=== PATIENT | male | born 2005 | race Caucasian/White ===

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

== ENCOUNTER 2025-01-23 01:33 | Emergency (ER) | payer SELFPAY ==
[2025-01-23 01:48] VITALS: BP 137/91; PULSE 103; RESP 18; TEMP 36.7; O2SAT 98
--- NOTE | 2025-01-23 01:49 | ED.PSYCH ---
HPI - Psych General Chief Complaint: Psychiatric Symptoms <Maurisio Rainey MD - Last Filed: 01/23/25 06:59> Stated Complaint: SI with plan <Maurisio Rainey MD - Last Filed: 01/23/25 06:59> Time Seen by Provider: 01/23/25 17:40 <Maurisio Rainey MD - Last Filed: 01/23/25 06:59> Source: patient and EMS <Maurisio Rainey MD - Last Filed: 01/23/25 06:59> Mode of arrival: EMS <Maurisio Rainey MD - Last Filed: 01/23/25 06:59> Limitations: no limitations <Maurisio Rainey MD - Last Filed: 01/23/25 06:59> History of Present Illness HPI Narrative: This is a 19-year-old male with history of anxiety, depression who presents to the ED for suicidal ideations. Per EMS, they were called by the crisis line for patient reporting that he was wanting to jump off a bridge. Patient does corroborate this story. He states that he was on his way to the [place] a bridge over some sharp prox to climb up and jump off. He states he was admitted to a psych facility about a month and a half ago and was given a prescription for Lexapro, Abilify, and another medication that he cannot recall. He was initially set up for a psychiatry re-evaluation but this got pushed back and he has since run out of his prescriptions. He does report that the medicines were somewhat helping. Denies any homicidal ideations, hallucinations. Does report some bilateral flank pain at this time and does have a history of kidney stones. Denies hematuria, dysuria. <Maurisio Rainey MD - Last Filed: 01/23/25 06:59> Related Data Allergies/Adverse Reactions: Allergies Allergy/AdvReac Type Severity Reaction Status Date / Time No Known Allergies Allergy Verified 01/23/25 04:09 <Maurisio Rainey MD - Last Filed: 01/23/25 06:59> [facility] Social History Social History: Social History Substance use type: marijuana <Maurisio Rainey MD - Last Filed: 01/23/25 06:59> Exam Narrative: APPEARANCE: No acute distress, nontoxic, resting in bed EYES: EOMI HEENT: Normocephalic, atraumatic, OMM RESPIRATORY: No respiratory distress Clear to auscultation bilaterally with no rhonchi wheezing or rales. CARDIOVASCULAR: Regular rate and rhythm without murmurs rubs or gallops. ABDOMINAL: Soft, nontender, nondistended, no rebound or guarding MUSCULOSKELETAl: Moves all extremities. No clubbing, cyanosis or edema. NEURO: Awake and alert. Following commands, speech normal, no focal deficits SKIN:: Warm, dry. No rashes lesions or abrasions PSYCHIATRIC: Blunted affect, depressed mood <Maurisio Rainey MD - Last Filed: 01/23/25 06:59> Course Reevaluation(s) Reevaluation #1: I assumed care of this patient at shift change with pending psychiatric admission. No interval change in patient's condition. He remained quite uncommon in his room. Was told by the nurse that he has a bed available at [facility] <Agus Adams MD - Last Filed: 01/23/25 17:41> Vital Signs Vital signs: Vital Signs Temperature 36.7 C 01/23/25 01:48 Pulse Rate 103 H 01/23/25 01:48 Respiratory Rate 18 01/23/25 01:48 Blood Pressure 137/91 H 01/23/25 01:48 Pulse Oximetry 98 01/23/25 01:48 Oxygen Delivery Room Air 01/23/25 01:48 Temperature 36.4 C 01/23/25 11:06 Pulse Rate 94 01/23/25 17:19 Respiratory Rate 14 01/23/25 17:19 Blood Pressure 119/68 01/23/25 17:19 Pulse Oximetry 96 01/23/25 17:19 Oxygen Delivery Room Air 01/23/25 01:48 <Maurisio Rainey MD - Last Filed: 01/23/25 06:59> Vital Signs Temperature 36.7 C 01/23/25 01:48 Pulse Rate 103 H 01/23/25 01:48 Respiratory Rate 18 01/23/25 01:48 Blood Pressure 137/91 H 01/23/25 01:48 Pulse Oximetry 98 01/23/25 01:48 Oxygen Delivery Room Air 01/23/25 01:48 Temperature 36.4 C 01/23/25 11:06 Pulse Rate 94 01/23/25 17:19 Respiratory Rate 14 01/23/25 17:19 Blood Pressure 119/68 01/23/25 17:19 Pulse Oximetry 96 01/23/25 17:19 Oxygen Delivery Room Air 01/23/25 01:48 <Agus Adams MD - Last Filed: 01/23/25 17:41> MDM - Psych MDM Narrative Medical decision making narrative: 19-year-old male Presenting for suicidal thoughts with plan. On initial evaluation patient was in no acute distress afebrile, hemodynamic stable. Differentials include but are not limited to: Suicidal ideation, bipolar disorder, depression, drug intoxication, alcohol intoxication, ureterolithiasis Notable exam findings: Depressed mood, blunted affect normal abdominal exam Notable lab findings: Labs without significant abnormalities. UA had very small amount of microscopic hematuria, unlikely consistent with a ureterolithiasis Patient medically cleared for psychiatric evaluation at this time. Patient remains pending psychiatric evaluation at this time. Patient signed out to Dr. Adams. <Maurisio Rainey MD - Last Filed: 01/23/25 06:59> Medical Records Attestation: I reviewed the patient's medical records. <Maurisio Rainey MD - Last Filed: 01/23/25 06:59> Lab Data Attestation: I reviewed the patient's lab results. <Maurisio Rainey MD - Last Filed: 01/23/25 06:59> Result diagrams: 01/23/25 02:25 01/23/25 02:25 <Maurisio Rainey MD - Last Filed: 01/23/25 06:59> Labs: Lab Results 01/23/25 Range/Units 02:25 WBC 5.5 (4.5-10.0) K/mm3 RBC 5.64 (4.6-6.20) M/mm3 Hgb 15.3 (14.0-18.0) g/dL Hct 46.1 (42.0-52.0) % MCV 81.7 (80-100) fl MCH 27.1 (26-34) pg MCHC 33.2 (32-36) g/dl RDW 12.3 (11.5-14.5) % Plt Count 247 (150-375) k/mm3 MPV 8.5 (7.4-10.4) fl Immature Gran % (Auto) 0.4 (0-0.5) % Neut % (Auto) 51.8 (45.5-73.1) % Lymph % (Auto) 35.7 (18.3-44.2) % [place] % (Auto) 9.8 H (2.6-8.5) % Eos % (Auto) 1.6 (0-4.4) % Baso % (Auto) 0.7 (0.2-1.2) % Lymph # (Auto) 1.97 (0.9-3.2) K/mm3 [place] # (Auto) 0.5 (0.1-0.6) K/mm3 Eos # (Auto) 0.1 (0-0.3) K/mm3 Baso # (Auto) 0.0 (0.0-0.1) K/mm3 Abs Immat Gran (auto) 0.02 (0.00-0.031) K/mm3 Absolute Neuts (auto) 2.9 (1.3-6.7) K/mm3 Absolute Nucleated RBC 0.000 (0.0-0.012) K/mm3 Nucleated RBC % 0.0 (0.0-0.2) % Sodium 138 (134-143) mmol/L Potassium 3.8 (3.4-5.0) mmol/L Chloride 101 (98-107) mmol/L Carbon Dioxide 28 (22-30) mmol/L Anion Gap 9 (4-12) mmol/L BUN 14 (8-21) mg/dL Creatinine 0.74 (0.7-1.3) mg/dL Estim Creat Clear Calc Not Reportable Estimated GFR > 60 (59 - ) Glucose 125 H (65-110) mg/dL Calcium 9.4 (8.9-10.7) mg/dL Total Bilirubin 0.6 (0.2-1.3) mg/dL AST 47 (17-59) U/L ALT 60 H (6-50) U/L Alkaline Phosphatase 58 (58-237) U/L Total Protein 7.8 (6.3-8.6) g/dL Albumin 4.9 (3.7-5.6) g/dL TSH 2.700 (0.465-4.680) uIU/mL Urine Color Yellow (Yellow) Urine Appearance Turbid H (Clear) Urine pH 8.0 (5.0-9.0) Ur Specific [place] 1.020 (1.001-1.035) Urine Protein Negative (Negative) mg/dL Urine Glucose (UA) Negative (Negative) mg/dL Urine Ketones Negative (Negative) mg/dL Ur Blood (Man) Negative (Negative) Urine Nitrate Negative (Negative) Urine Bilirubin Negative (Negative) Urine Urobilinogen 1.0 (<2.0) mg/dL Leukocyte Esterase Rfl Negative (Negative) ANALISA/UL Urine RBC 3-5 H (0-2) /hpf Urine WBC 0-5 (0-3) /hpf Ur Squamous Epith Cells None seen (Few) /hpf Urine Bacteria None seen /hpf Urine Casts 0-2 Salicylates < 1.0 L (2-20) mg/dL Urine Opiates Screen Negative (Negative) Urine Methadone Screen Negative (Negative) Acetaminophen < 10 L (10-30) ug/mL Ur Barbiturates Screen Negative (Negative) Ur Phencyclidine Scrn Negative (Negative) Ur Amphetamine Screen Negative (Negative) U Benzodiazepines Scrn Negative (Negative) Urine Cocaine Screen Negative (Negative) U Cannabinoids Screen Negative (Negative) Ethyl Alcohol < 10 (<10) mg/dL Influenza A (RT-PCR) Negative (Negative) Influenza B (RT-PCR) Negative (Negative) RSV (RT-PCR) Negative (Negative) SARS-CoV-2 RNA (RT-PCR) Negative (Negative) <Maurisio Rainey MD - Last Filed: 01/23/25 06:59> Lab Results 01/23/25 Range/Units 02:25 WBC 5.5 (4.5-10.0) K/mm3 RBC 5.64 (4.6-6.20) M/mm3 Hgb 15.3 (14.0-18.0) g/dL Hct 46.1 (42.0-52.0) % MCV 81.7 (80-100) fl MCH 27.1 (26-34) pg MCHC 33.2 (32-36) g/dl RDW 12.3 (11.5-14.5) % Plt Count 247 (150-375) k/mm3 MPV 8.5 (7.4-10.4) fl Immature Gran % (Auto) 0.4 (0-0.5) % Neut % (Auto) 51.8 (45.5-73.1) % Lymph % (Auto) 35.7 (18.3-44.2) % [place] % (Auto) 9.8 H (2.6-8.5) % Eos % (Auto) 1.6 (0-4.4) % Baso % (Auto) 0.7 (0.2-1.2) % Lymph # (Auto) 1.97 (0.9-3.2) K/mm3 [place] # (Auto) 0.5 (0.1-0.6) K/mm3 Eos # (Auto) 0.1 (0-0.3) K/mm3 Baso # (Auto) 0.0 (0.0-0.1) K/mm3 Abs Immat Gran (auto) 0.02 (0.00-0.031) K/mm3 Absolute Neuts (auto) 2.9 (1.3-6.7) K/mm3 Absolute Nucleated RBC 0.000 (0.0-0.012) K/mm3 Nucleated RBC % 0.0 (0.0-0.2) % Sodium 138 (134-143) mmol/L Potassium 3.8 (3.4-5.0) mmol/L Chloride 101 (98-107) mmol/L Carbon Dioxide 28 (22-30) mmol/L Anion Gap 9 (4-12) mmol/L BUN 14 (8-21) mg/dL Creatinine 0.74 (0.7-1.3) mg/dL Estim Creat Clear Calc Not Reportable Estimated GFR > 60 (59 - ) Glucose 125 H (65-110) mg/dL Calcium 9.4 (8.9-10.7) mg/dL Total Bilirubin 0.6 (0.2-1.3) mg/dL AST 47 (17-59) U/L ALT 60 H (6-50) U/L Alkaline Phosphatase 58 (58-237) U/L Total Protein 7.8 (6.3-8.6) g/dL Albumin 4.9 (3.7-5.6) g/dL TSH 2.700 (0.465-4.680) uIU/mL Urine Color Yellow (Yellow) Urine Appearance Turbid H (Clear) Urine pH 8.0 (5.0-9.0) Ur Specific [place] 1.020 (1.001-1.035) Urine Protein Negative (Negative) mg/dL Urine Glucose (UA) Negative (Negative) mg/dL Urine Ketones Negative (Negative) mg/dL Ur Blood (Man) Negative (Negative) Urine Nitrate Negative (Negative) Urine Bilirubin Negative (Negative) Urine Urobilinogen 1.0 (<2.0) mg/dL Leukocyte Esterase Rfl Negative (Negative) ANALISA/UL Urine RBC 3-5 H (0-2) /hpf Urine WBC 0-5 (0-3) /hpf Ur Squamous Epith Cells None seen (Few) /hpf Urine Bacteria None seen /hpf Urine Casts 0-2 Salicylates < 1.0 L (2-20) mg/dL Urine Opiates Screen Negative (Negative) Urine Methadone Screen Negative (Negative) Acetaminophen < 10 L (10-30) ug/mL Ur Barbiturates Screen Negative (Negative) Ur Phencyclidine Scrn Negative (Negative) Ur Amphetamine Screen Negative (Negative) U Benzodiazepines Scrn Negative (Negative) Urine Cocaine Screen Negative (Negative) U Cannabinoids Screen Negative (Negative) Ethyl Alcohol < 10 (<10) mg/dL Influenza A (RT-PCR) Negative (Negative) Influenza B (RT-PCR) Negative (Negative) RSV (RT-PCR) Negative (Negative) SARS-CoV-2 RNA (RT-PCR) Negative (Negative) <Agus Adams MD - Last Filed: 01/23/25 17:41> Discharge Plan Discharge Clinical Impression: Suicidal ideation <Maurisio Rainey MD - Last Filed: 01/23/25 06:59> Patient Disposition: Psychiatric Hosp <Maurisio Rainey MD - Last Filed: 01/23/25 06:59> Condition: Stable <Maurisio Rainey MD - Last Filed: 01/23/25 06:59> Patient Language: Lithuanian <Maurisio Rainey MD - Last Filed: 01/23/25 06:59> Follow-up/Referrals: PHYSICIAN,CONDUCTOR ORCHESTRA [Primary Care Provider, Internal Medicine] <Maurisio Rainey MD - Last Filed: 01/23/25 06:59> Time of Disposition: 17:41 <Maurisio Rainey MD - Last Filed: 01/23/25 06:59> 17:41 <Agus Adams MD - Last Filed: 01/23/25 17:41>
[2025-01-23 02:36] LABS: Hematocrit 46.1 % (42.0-52.0); Hemoglobin 15.3 g/dL (14.0-18.0); Immature Granulocyte Percent A 0.4 % (0-0.5); Lymphocytes Absolute Auto 1.97 K/mm3 (0.9-3.2); Mean Corpuscular HGB Conc 33.2 g/dl (32-36); Mean Corpuscular Hemoglobin 27.1 pg (26-34); Mean Corpuscular Volume 81.7 fl (80-100); Nucleated Red Blood Cells Absolute Auto 0.000 K/mm3 (0.0-0.012); Nucleated Red Blood Cells Perc 0.0 % (0.0-0.2); Platelet Count Result 247 k/mm3 (150-375); Red Blood Count 5.64 M/mm3 (4.6-6.20); White Blood Count 5.5 K/mm3 (4.5-10.0)
[2025-01-23 02:46] LABS: Acetaminophen < 10 ug/mL (10-30); Salicylate < 1.0 mg/dL (2-20)
[2025-01-23 02:47] LABS: Alanine Aminotransferase 60 U/L (6-50); Albumin Level 4.9 g/dL (3.7-5.6); Alkaline Phosphatase 58 U/L (58-237); Anion Gap 9 mmol/L (4-12); Aspartate Amino Transferase 47 U/L (17-59); Bilirubin,Total 0.6 mg/dL (0.2-1.3); Blood Urea Nitrogen 14 mg/dL (8-21); Calcium 9.4 mg/dL (8.9-10.7); Carbon Dioxide 28 mmol/L (22-30); Chloride 101 mmol/L (98-107); Estimated Glomerular Filt Rate > 60; Glucose 125 mg/dL (65-110); Potassium 3.8 mmol/L (3.4-5.0); Sodium 138 mmol/L (134-143); Total Protein 7.8 g/dL (6.3-8.6)
[2025-01-23 02:49] LABS: Add Urine Microscopic? YES; Appearance Urine Turbid (Clear); Glucose Urine UA Negative (Negative); Leukocyte Esterase Ur Negative LEU/UL (Negative); Nitrate Urine Negative (Negative); Non Pathogenic Casts 0-2; Specific Grav Ur 1.020 (1.001-1.035)
[2025-01-23 03:12] LABS: Influenza A QL RT-PCR Negative (Negative); Influenza B QL RT-PCR Negative (Negative); RSV RNA, RT-PCR Negative (Negative); SARS-CoV-2 RNA PCR Negative (Negative)
[2025-01-23 03:17] LABS: Thyroid Stimulating Hormone 2.700 uIU/mL (0.465-4.680)
[2025-01-23 03:26] LABS: Cannabinoid Screen Urine Negative (Negative)
--- NOTE | 2025-01-23 04:21 | PC.NURSE ---
This RN talked to Guerita at [facility] at [phone], [facility] states they have no services available for pt due to pt being over the age
[2025-01-23 07:25] VITALS: BP 131/85; PULSE 87; RESP 15; O2SAT 95
--- NOTE | 2025-01-23 08:44 | PC.NURSE ---
Spoke to Lala at [place] about pt at this time, advised to contact [facility] regarding pt transfer.
--- NOTE | 2025-01-23 10:16 | PC.NURSE ---
Pt accepted to [facility], accepting is Dr Rucker. Requesting consents to be signed and faxed to facility at [phone], and additional records to be sent. Following receipt, will call back with bed assignment.
--- NOTE | 2025-01-23 10:35 | PC.NURSE ---
Records faxed w/ consent signed to [facility] as requested, awaiting bed assignment.
[2025-01-23 11:06] VITALS: BP 118/78; PULSE 97; RESP 14; TEMP 36.4; O2SAT 97
--- NOTE | 2025-01-23 15:14 | PC.NURSE ---
pt accepted at [facility]. report called to ERVIN Marie. accepting physician is Dr. Rucker. electronics technician apprentice working on transport.
[2025-01-23 17:19] VITALS: BP 119/68; PULSE 94; RESP 14; O2SAT 96
== END 2025-01-23 17:41 ==
PROVIDERS: Student in an Organized Health Care Education/Training Program; Emergency Provider Family Medicine
DX: R45.851 Suicidal ideations (principal); Z11.52 Encounter for screening for COVID-19; F41.9 Anxiety disorder, unspecified; F32.A Depression, unspecified; Z87.442 Personal history of urinary calculi
CPT/HCPCS: 36415; 80053; 80143; 80179; 80307; 81001; 82077; 84443; 85025; 87637; 99285

== ENCOUNTER 2025-03-12 18:37 | Emergency (ER) | payer MEDICAID, SELFPAY ==
[2025-03-12] VITALS (18 sets, daily range): BP systolic 115–136; BP diastolic 68–88; PULSE 105–133; RESP 14–33; TEMP 37; O2SAT 95–99
--- NOTE | ~2025-03-12 | XR_ITS ---
XR chest 2V HOSTORY: cough, shortness of breath COMPARISON:[ None] FINDINGS: Frontal and lateral views of the chest were obtained. The lungs are clear. The heart size is normal in size. Pulmonary vasculature is unremarkable. Osseous structures are intact. IMPRESSION: No acute lung findings.] [ ] Reviewed, dictated and finalized at location S. E MANAGER
--- OUTSIDE RECORDS SUMMARY | 2025-03-12 18:40 | XMS_ITS | Clinical Summary ---
Author Organization [facility] [place] Address [address] [place] [address] Care Team Providers Care Correctional Case Manager Name Role Phone Rashad Hewitt MD Primary Care Provid er Unavailable Allergies No known active allergies Medications No known medications Active Problems No known active problems Encounters Date Type Department Care Team Description 02/26/2025 External Device Data [facility] ABSTRACTION Provider, Abstract 02/19/2025 External Device Data [facility] ABSTRACTION Provider, Abstract 02/13/2025 Telephone [facility] [place] [address] [place] [address] Sarah Jacobsen Primary Care Outreach from Last 3 Months Social History Tobacco [...] - 19+ 3-dose series) 11/26 Care Teams Correctional Case Manager Relationship Specialty Start Date End Date Rashad Hewitt MD PCP - General Family Practice 10/19/22
--- OUTSIDE RECORDS SUMMARY | 2025-03-12 18:40 | XMS_ITS | Clinical Summary ---
Author Organization [facility] Address [address] [place] [address] Care Team Providers Care Wet Silk Hanger Name Role Phone Unknown, Notinfile Primary Care [...] drink = 0.6 oz pur e alcohol) [facility] Utilities Answer Date Recorded In the past 12 months has [employer], gas, oil, or water company threatened to [...] often do you attend chur ch or amish services? Patient declined 04/26/2024 Do you belong to any clubs o r organizations such as quaker groups, unions, fraternal or athletic groups, or [...] any time in the past 12 m [facility], were you homeless or living in a chcf (including now)? No 04/26/2024 Personal Safety Answer Date Recorded Have you ever been in or are you currently in a harmful physical or emotional relationship or is someone making you feel afraid or unsafe? Denies 04/26/2024 Sex and Gender Information Value Date Recorded Sex Assigned at Not on file Legal Sex Male 9:02 AM DOCTOR OF RADIOLOGY Gender Identity Not on file Sexual Orientation Not on file Growth Chart Information Age Height Weight [id number] th Percentile BMI Percentile Head Circum Head Circum Percentile Date 18 years 180.3 cm (5' 11) 64.1 kg (141 lb 6.4 oz) 16.76%* 2024 18 years 180.3 cm (5' 11) 72.6 kg (160 lb) 52.85%* 2024 3 years 99.1 cm (3' 3.02) 2008 3 years 15.8 kg (34 lb 13.3 oz) 2008 * [facility] (Boys, 2-20 Years) Last Filed Vital Signs Vital Sign Reading Time Taken Comments Blood Pressure 115/56 04/26/2024 3:40 PM DOCTOR OF RADIOLOGY Pulse 70 04/26/2024 3:40 PM DOCTOR OF RADIOLOGY Temperature 36.5 C (97.7 F) 04/26/2024 3:16 PM DOCTOR OF RADIOLOGY Respiratory Rate 16 04/26/2024 3:40 PM DOCTOR OF RADIOLOGY Oxygen Saturation 93% 04/26/2024 3:40 PM DOCTOR OF RADIOLOGY Inhaled Oxygen Concentration - - Weight 64.1 kg (141 lb 6.4 oz) 04/26/2024 1:23 P M DOCTOR OF RADIOLOGY Height 180.3 cm (5' 11) 04/26/2024 2:01 AM DOCTOR OF RADIOLOGY Body Mass Index 19.72 04/26/2024 2:01 AM DOCTOR OF RADIOLOGY Body Mass Index Percentile 16.76% 04/26/2024 1:2 3 PM DOCTOR OF RADIOLOGY Growth Chart: [facility] (Boys, 2-2 0 Years) Plan of Treatment [...] this topic Medical Devices Implanted Type Area Leather Tacker Device Identifier Shelf Expiration Date Model / Serial / Lot [employer] Flavio Contour 6fr 26cm Large Inner Lumen Low Profile Bladder Abdulaziz Taper Latex Free 180-223 - [id number] Implanted:Qty: 1 on 04/26/2024 by Nirmal Santana MD at [facility] Left: Ureter [employer] Flavio 01/30/2027 [id number] / / [id number] Insurance Advance Directives For more information, please contact: [phone] * Full Code (Latest Code Status on File) Date Activated Date Inactivated Comments 04/26/2024 2:12 AM 04/26/2024 10:10 PM * Full Code Date Activated Date Inactivated Comments 04/26/2024 2:12 AM 04/26/2024 2:12 AM Care Teams Wet Silk Hanger Relationship Specialty Start Date End Date Unknown, Notinfile PCP - General 11/09/16 Nicole Good, RN Registered Nurse 04/26/24
--- NOTE | 2025-03-12 18:51 | ECG_ITS ---
Test Date: 2025-03-12 18:57:45 Measurements Intervals [place] Rate: 137 P: 78 AL: 104 QRS: 102 QRSD: 93 T: -68 QT: 270 QTc: 408 Interpretive Statements SINUS TACHYCARDIA WITH SHORT AL INTERVAL RIGHT AXIS DEVIATION INCOMPLETE RIGHT BUNDLE BRANCH BLOCK MINIMAL Q WAVE- ANTEROLAT/INF LEADS ST-T WAVE ABNORMALITY IN ANTEROLAT/INF LEADS- CONSIDER ISCHEMIA BASELINE ARTIFACT- I ABNORMAL ECG No previous ECG available for comparison Electronically Signed On 03-12-2025 20:54:14 CARDIOLOGY NURSE by Milton Gutiérrez D.O.
--- OUTSIDE RECORDS SUMMARY | 2025-03-12 19:42 | XMS_ITS | Clinical Summary ---
Author Organization [facility] [place] Address [address] [place] [address] Care Team Providers Care Financial Services Internship Name Role Phone Rashad Hewitt MD Primary Care Provid er Unavailable Allergies No known active allergies Medications No known medications Active Problems No known active problems Encounters Date Type Department Care Team Description 02/26/2025 External Device Data [facility] ABSTRACTION Provider, Abstract 02/19/2025 External Device Data [facility] ABSTRACTION Provider, Abstract 02/13/2025 Telephone [facility] [place] [address] [place] [address] Sarah Jacobsen Primary Care Outreach from [...] - 19+ 3-dose series) 11/26 Care Teams Financial Services Internship Relationship Specialty Start Date End Date Rashad Hewitt MD PCP - General Family Practice 10/19/22
[2025-03-12 19:50] LABS: Hematocrit 46.7 % (42.0-52.0); Hemoglobin 16.0 g/dL (14.0-18.0); Immature Granulocyte Percent A 0.3 % (0-0.5); Lymphocytes Absolute Auto 1.52 K/mm3 (0.9-3.2); Mean Corpuscular HGB Conc 34.3 g/dl (32-36); Mean Corpuscular Hemoglobin 27.6 pg (26-34); Mean Corpuscular Volume 80.7 fl (80-100); Nucleated Red Blood Cells Absolute Auto 0.000 K/mm3 (0.0-0.012); Nucleated Red Blood Cells Perc 0.0 % (0.0-0.2); Platelet Count Result 263 k/mm3 (150-375); Red Blood Count 5.79 M/mm3 (4.6-6.20); White Blood Count 10.3 K/mm3 (4.5-10.0)
[2025-03-12 20:01] LABS: Alanine Aminotransferase 40 U/L (6-50); Albumin Level 4.8 g/dL (3.7-5.6); Alkaline Phosphatase 98 U/L (58-237); Anion Gap 11 mmol/L (4-12); Aspartate Amino Transferase 27 U/L (17-59); Bilirubin,Total 0.8 mg/dL (0.2-1.3); Blood Urea Nitrogen 14 mg/dL (8-21); Calcium 9.7 mg/dL (8.9-10.7); Carbon Dioxide 28 mmol/L (22-30); Chloride 99 mmol/L (98-107); Estimated Glomerular Filt Rate > 60; Glucose 90 mg/dL (65-110); Potassium 3.8 mmol/L (3.4-5.0); Sodium 138 mmol/L (134-143); Total Protein 8.6 g/dL (6.3-8.6)
--- NOTE | 2025-03-12 20:12 | ED_ITS ---
HPI - Arrhythmia/Palpitations General Chief Complaint: Arrhythmia/Palpitations Stated Complaint: sinus pressure x3 weeks, HR 130s at UC Time Seen by Provider: 03/12/25 19:33 Source: patient and family Mode of arrival: EMS Limitations: no limitations History of Present Illness HPI narrative: This is a 19-year-old male who presents the ED for congestion and tachycardia. Patient states that he was seen at urgent care earlier today for congestion that he has had for the last 3 weeks it was found to have an elevated heart rate in the 140s to 150s so he was sent here for further evaluation by EMS. Patient denies chest pain shortness of breath, lightheadedness, dizziness at this time. He has never had this issue before that he is aware. Grandmother at bedside states that the patient's mother has had this issue in the past and had a negative workup. There was apparently a history of hypothyroidism in the family but he has never been diagnosed. Denies any caffeine use no illicit substance abuse. Related Data Allergies Allergy/AdvReac Type Severity Reaction Status Date / Time No Known Allergies Allergy Verified 03/12/25 18:50 [facility] Social History Social History Substance use type: marijuana Course Vital Signs Vital signs: Vital Signs Temperature 98.6 F 03/12/25 18:51 Pulse Rate 133 H 03/12/25 18:51 Respiratory Rate 18 03/12/25 18:51 Blood Pressure 136/88 03/12/25 18:51 Pulse Oximetry 98 03/12/25 18:51 Temperature 98.6 F 03/12/25 18:51 Pulse Rate 133 H 03/12/25 18:51 Respiratory Rate 18 03/12/25 18:51 Blood Pressure 136/88 03/12/25 18:51 Pulse Oximetry 98 03/12/25 18:51 [facility] Narrative Medical decision making narrative: 19-year-old male Presenting for sinus infection and tachycardia. On initial evaluation patient was in no acute distress afebrile, hemodynamic stable. He was tachycardic to the 120s to 130s. Differentials include but are not limited to: Arrhythmia, ACS, PE, electrolyte abnormality, hyperthyroidism, sinusitis, viral syndrome Notable exam findings: Tachycardia, heart and lungs otherwise clear. I personally reviewed the patient's lab result. Notable lab findings: Mild leukocytosis at 10.3. CMP without significant abnormalities. Determine negative. TSH and T4 within normal limits. I personally reviewed the patient's images and interpret as follows: Chest x- ray: Normal cardiac silhouette, no consolidations, no pleural effusions, no pulmonary vascular congestion I personally reviewed the patient's EKGs: Sinus tachycardia rate of 137, right axis deviation, incomplete right bundle-branch block, nonspecific T-wave changes without ST changes D-dimer negative so PE is effectively ruled out. No evidence of hyperthyroidism. No clear source of the patient's tachycardia at this time. After discussion with grandmother, this appears to be under family in the patient's mother and grandfather and there was never a clear source found. Patient currently does not PCP. He was given to Dr. Ca, telemedicine, to establish care and for re-evaluation given the tachycardia. He appears to have a sinusitis today for the last 3 weeks so he will be started on Augmentin for this. Patient and family are agreeable to the plan. Given strict return precautions. Differential Diagnosis Differential Diagnosis: Arrhythmia, ACS, PE, electrolyte abnormality, hyperthyroidism, sinusitis, viral syndrome Lab Data 03/12/25 19:45 03/12/25 19:45 Labs: Lab Results 03/12/25 03/12/25 Range/Units 19:45 19:45 WBC 10.3 H (4.5-10.0) K/mm3 RBC 5.79 (4.6-6.20) M/mm3 Hgb 16.0 (14.0-18.0) g/dL Hct 46.7 (42.0-52.0) % MCV 80.7 (80-100) fl MCH 27.6 (26-34) pg MCHC 34.3 (32-36) g/dl RDW 11.9 (11.5-14.5) % Plt Count 263 (150-375) k/mm3 MPV 7.8 (7.4-10.4) fl Immature Gran % (Auto) 0.3 (0-0.5) % Neut % (Auto) 74.5 H (45.5-73.1) % Lymph % (Auto) 14.8 L (18.3-44.2) % Boyle % (Auto) 10.0 H (2.6-8.5) % Eos % (Auto) 0.2 (0-4.4) % Baso % (Auto) 0.2 (0.2-1.2) % Lymph # (Auto) 1.52 (0.9-3.2) K/mm3 Boyle # (Auto) 1.0 H (0.1-0.6) K/mm3 Eos # (Auto) 0.0 (0-0.3) K/mm3 Baso # (Auto) 0.0 (0.0-0.1) K/mm3 Abs Immat Gran (auto) 0.03 (0.00-0.031) K/mm3 Absolute Neuts (auto) 7.6 H (1.3-6.7) K/mm3 Absolute Nucleated RBC 0.000 (0.0-0.012) K/mm3 Nucleated RBC % 0.0 (0.0-0.2) % D-Dimer 0.30 (<0.48) ug/mL Sodium 138 (134-143) mmol/L Potassium 3.8 (3.4-5.0) mmol/L Chloride 99 (98-107) mmol/L Carbon Dioxide 28 (22-30) mmol/L Anion Gap 11 (4-12) mmol/L BUN 14 (8-21) mg/dL Creatinine 0.85 (0.7-1.3) mg/dL Estim Creat Clear Calc Not Reportable Estimated GFR > 60 (59 - ) Glucose 90 (65-110) mg/dL Calcium 9.7 (8.9-10.7) mg/dL Total Bilirubin 0.8 (0.2-1.3) mg/dL AST 27 (17-59) U/L ALT 40 (6-50) U/L Alkaline Phosphatase 98 (58-237) U/L Total Protein 8.6 (6.3-8.6) g/dL Albumin 4.8 (3.7-5.6) g/dL TSH 0.918 (0.465-4.680) uIU/mL Free T4 1.21 Cancelled (0.78-2.19) ng/dL Imaging Data Radiologist's impression: ITS Impressions Chest X-Ray 03/12/25 20:25 IMPRESSION: No acute lung findings.] [ ] Discharge Plan Discharge Clinical Impression: Sinus tachycardia Sinusitis Qualifiers: Sinusitis location: unspecified location Chronicity: acute Recurrence: non- recurrent Qualified Code(s): J01.90 - Acute sinusitis, unspecified Patient Disposition: Home Condition: Stable Instructions: Antibiotic Form, Sinusitis (ED), Tachycardia (ED) Additional Instructions: Take Augmentin as prescribed. Follow-up with Dr. Ca, Family Medicine, or with a PCP that is signed by Medicaid in the next week or so for re-evaluation and further evaluation of your tachycardia. Return to the ED for any new or worsening symptoms. Patient Language: Malaysian Prescriptions: New amoxicillin-pot clavulanate 875-125 mg tablet 1 tablet PO Q12H Qty: 10 0RF Follow-up/Referrals: [facility] [facility] [Primary Care Provider, Internal Medicine] Homar Ca MD [Physician, Family Practice]
[2025-03-12] MEDS: SODIUM CHLORIDE 0.9% IV 1,000 ML 999 ML IV CONT (20:41)
[2025-03-12 21:24] LABS: Free T4 Free Thyroxine 1.21 ng/dL (0.78-2.19)
[2025-03-12 21:43] LABS: Thyroid Stimulating Hormone 0.918 uIU/mL (0.465-4.680)
== END 2025-03-12 22:12 | disposition home or self-care (01) ==
PROVIDERS: Emergency Provider Student in an Organized Health Care Education/Training Program
DX: J01.90 Acute sinusitis, unspecified (principal); R00.0 Tachycardia, unspecified; I45.10 Unspecified right bundle-branch block; R94.31 Abnormal electrocardiogram [ECG] [EKG]
CPT/HCPCS: 36415; 71046; 80053; 84439; 84443; 85025; 85380; 93005; 96360; 99283; A9270; J7030